=== PATIENT | female | born 1945 | race Caucasian/White ===

== ENCOUNTER 2016-08-03 | Emergency (ER) | payer OTHER, SELFPAY | END 2016-08-03 14:36 | disposition home or self-care (01) | DX: S63.502A Unspecified sprain of left wrist, initial encounter (principal); I10 Essential (primary) hypertension; E07.9 Disorder of thyroid, unspecified; E78.5 Hyperlipidemia, unspecified; W18.39XA Other fall on same level, initial encounter; Y92.007 Garden or yard of unspecified non-institutional (private) residence as the place of occurrence of the external cause; Z79.82 Long term (current) use of aspirin; Z79.899 Other long term (current) drug therapy | CPT/HCPCS: 73110; 99283 ==

== ENCOUNTER → 2020-09-27 | Outpatient (CLI) | payer OTHER | LOC: MAMO 09-11 13:30 | DX: Z12.31 Encounter for screening mammogram for malignant neoplasm of breast (principal) | CPT/HCPCS: 77063; 77067 ==